=== PATIENT | female | born 1970 | race Caucasian/White ===

== ENCOUNTER 2017-06-24 13:12 | Outpatient (CLI) | payer MEDICARE, MEDICAID ==
[2017-06-24 14:49] LABS: Anion Gap 14 mmol/L (10-20); BUN (Urea Nitrogen) 16 mg/dL (7.0-18.7); Calc. Creatinine Clearance 0 mL/min (70-130); Calcium 9.4 mg/dL (7.8-10.44); Carbon Dioxide 25 mmol/L (22-29); Chloride 106 mmol/L (98-107); Estimated GFR-MDRD Greater than 90; Glucose 117 mg/dL (70-105); Potassium 4.7 mmol/L (3.5-5.1); Sodium 140 mmol/L (136-145)
--- NOTE | 2017-06-24 16:08 | ULT ---
BILATERAL RENAL ULTRASOUND: Date: 06/24/17 COMPARISON: 05/30/16. HISTORY: Neuromuscular dysfunction. TECHNIQUE: Sagittal and transverse imaging of the kidneys performed. FINDINGS: Limited evaluation due to body habitus. Right kidney has a normal cortical echotexture, measuring 9.0 x 4.9 x 5.2 cm. 1.7 x 1.8 x 1.4 cm hypo echoic area in the right kidney. Evaluation is incomplete. Complex cyst versus a more solid appearing lesion cannot be excluded. There is persistent dilatation of the left renal pelvis. 0.6 cm and 1.0 cm in the upper aspect of the left kidney are noted. Left kidney measures 4.1 x 3.5 x 8.3 cm. Urinary bladder is identified, along with bilateral ureteral jets. Questionable uterine leiomyoma. IMPRESSION: 1. Persistent prominence of the left renal pelvis due to pelvocaliectasis versus mild hydronephrosis . 2. Possible uterine leiomyoma. 3. Bilateral ureteral jets are noted. POS: [facility]
== END 2017-06-24 13:13 | disposition home or self-care (01) ==
LOC: ULT 13:12
PROVIDERS: ATTEND Urology
DX: N31.9 Neuromuscular dysfunction of bladder, unspecified (principal); N28.89 Other specified disorders of kidney and ureter
CPT/HCPCS: 76770; 80048

== ENCOUNTER 2017-07-02 09:17 | Outpatient (CLI) | payer MEDICARE, OTHER ==
--- NOTE | 2017-07-02 12:44 | CT ---
CT ABDOMEN AND PELVIS WITH AND WITHOUT IV CONTRAST: HISTORY: Urinary bladder dysfunction. Renal cyst. FINDINGS: Mild distention of each renal collecting system and calyces correlates with findings on prior sonogra m. The ureters are decompressed. A 0.2 cm calculus is present at the inferior pole of the left kidn ey and may represent a nonobstructing urinary tract calcification or a cortical calcification. There is parenchymal scarring involving each kidney. The urinary bladder is incompletely distended. No f illing defects are apparent within the urinary system on the delayed images. A large lobulated, enha ncing mass of the left side of the uterine myometrium is 6.2 cm. Ventriculostomy catheters extending into the abdomen are partially visualized. There is severe leftward convex rotator scoliotic curvat ure of the thoracolumbar spine. Just inferior to the right kidney, a very large, circumscribed, lobular mass of predominantly fat den sity contains some internal vascularity and enhancement. It measures up to 9.5 cm in length x 6.2 cm in width x 5.1 cm in depth and, based on the coronal images, it is favored to be an exophytic mass f rom the inferior pole, right kidney. No invasion of the adjacent structures is apparent. IMPRESSION: 1. Large, predominantly fatty right retroperitoneal mass, favored to represent an exophytic angiomyo lipoma, projecting inferiorly from the right kidney. As a conservative measure, please consider six- month follow-up CT to evaluate for stability. 2. Tiny, nonobstructing left renal calculus. Mild distention of the collecting structures of each k idney may be related to chronic reflux, as significant obstruction is not apparent. 3. Extensive parenchymal scarring involving each kidney. 4. Large uterine fibroid. 5. Severe leftward convexed rotatory scoliotic curvature of the lumbar spine. POS: [facility]
[2017-07-02] MEDS ORDERED: Iopamidol 370 76% 100 ML VIAL ONE (16:18)
== END 2017-07-02 09:18 | disposition home or self-care (01) ==
LOC: CT 09:17
PROVIDERS: ATTEND Urology
DX: N28.1 Cyst of kidney, acquired (principal); N31.9 Neuromuscular dysfunction of bladder, unspecified; D25.9 Leiomyoma of uterus, unspecified; N20.0 Calculus of kidney; N28.89 Other specified disorders of kidney and ureter; M41.9 Scoliosis, unspecified
CPT/HCPCS: 74178

== ENCOUNTER 2017-08-08 12:11 | Outpatient (CLI) | payer MEDICARE, MEDICAID ==
[~2017-08-08 12:11] MED LIST: Iopamidol 370 76% 100 ML VIAL ONE
--- NOTE | 2017-08-08 16:13 | CT ---
CT ANGIOGRAM OF THE ABDOMEN INCLUDING 3D RENDERING: HISTORY: A 47-year-old female with a history of angiomyolipoma right kidney. The patient has cerebral palsy. COMPARISON: 07/02/17. FINDINGS: There is very severe levoscoliotic deformity of the lumbar vertebral column consistent with a history of cerebral palsy. This results in severe deformity of the abdominal aorta and organ position withi n the abdomen. There is again noted to be a large angiomyolipoma involving the lower pole of the rig ht kidney. This mass measures approximately 4.8 x 6.7 x 7.2 cm. There is 1 right and 1 left renal a rtery. No evidence of accessory right renal artery demonstrated. There are 2 somewhat nodular foci of arterial enhancement at the periphery of this mass probably representing small aneurysms or pseudo aneurysms of capsular branch arteries feeding the angiomyolipoma. Ventriculoperitoneal shunt tube in place. Large angiomyolipoma off the anterior aspect of the lower pole of the right kidney. A single right r enal artery is demonstrated with no evidence for definite accessory right renal arteries. There appe ar to be 2 nodular foci of arterial enhancement at the junction of the kidney and mass probably repre senting small pseudoaneurysms off of capsular artery branches. There are some dilated draining veins , but these are not significantly opacified on this arteriographic phase scan. Extensive levoscolios is of the lumbar spine. Other findings which are stable from the prior CT. POS: [facility]
--- NOTE | 2017-08-08 18:22 | NM ---
NUCLEAR MEDICINE RENOGRAM WITH FUROSEMIDE: 08/08/17 HISTORY: 47-year-old female with diagnosis of N31.9, neuromuscular dysfunction of bladder, unspecified. Cerebr al palsy. TECHNIQUE: 28 mg of Furosemide (Lasix) injected IV 15 minutes prior to start of exam. 8.8 millicuries of technet ium [id number], injected IV. A Samuels catheter was kept open during the exam. Dynamic scintigraphy of abdomen and pelvis from posterior view. Counts were obtained over the kidneys, and used to generate a time-activity curve. FINDINGS: Both renograms exhibit normal uptake and washout curves. PARAMETER LEFT KIDNEY RIGHT KIDNEY Split function: 48% 52% Time to peak : 2.4 minutes 3.4 minutes Half-time from peak: 9.5 minutes 11.1 minutes Normal range of halftime from peak is approximately 7 to 10 minutes. The value on the right is minima lly greater than upper limits of normal, but the washout curve appears normal. IMPRESSION: Bilateral renal function within normal limits. POS: [facility]
== END 2017-08-08 12:12 | disposition home or self-care (01) ==
LOC: NM 12:11
PROVIDERS: ATTEND Urology
DX: N31.9 Neuromuscular dysfunction of bladder, unspecified (principal); D17.71 Benign lipomatous neoplasm of kidney
CPT/HCPCS: 74175; 78708; A4641; A9562

== ENCOUNTER 2022-08-17 11:54 | Outpatient (CLI) | payer MEDICARE, MEDICAID | END 2022-08-17 11:55 | disposition home or self-care (01) | LOC: CT 11:54 | PROVIDERS: ATTEND Urology | DX: D30.01 Benign neoplasm of right kidney (principal); N13.2 Hydronephrosis with renal and ureteral calculous obstruction; L90.5 Scar conditions and fibrosis of skin; D25.9 Leiomyoma of uterus, unspecified; M41.86 Other forms of scoliosis, lumbar region | CPT/HCPCS: 74178 ==